=== PATIENT | female | born 1955 | race Caucasian/White ===

== ENCOUNTER → 2016-11-02 | Outpatient (CLI) | payer MEDICAID ==
[~2016-11-02] MED LIST: CIPRO 500MG TA500 MG PO; LORTAB 5/500 501 TAB PO
[2016-11-02 14:20] LABS: HEMOGLOBIN 13.9 g/dL (12.2-16.2); LYMPH # 1.2 K/mm3 (0.7-4.5); LYMPH % 22.9 % (10-50.0)
[2016-11-02 14:38] LABS: BUN 12 mg/dL (7-18)
[2016-11-02 14:42] LABS: GFR (ESTIMATED) 74 ML/MIN (59-)
[2016-11-06 20:40] LABS: 1,25-Dihydroxy, Vitamin D-2 15 pg/mL (.); 1,25-Dihydroxy, Vitamin D-3 47 pg/mL (.); Total 1,25-Dihydroxy,Vitamin D 62 pg/mL (.)
== END ==
LOC: LAB 13:09
PROVIDERS: Nurse Practitioner Family
DX: J44.9 Chronic obstructive pulmonary disease, unspecified (principal); I10 Essential (primary) hypertension; E78.5 Hyperlipidemia, unspecified; E55.9 Vitamin D deficiency, unspecified